=== PATIENT | male | born 1965 | race African-American/Black ===

== ENCOUNTER 2017-03-01 08:45 | Observation (INO) | payer OTHER ==
--- NOTE | ~2017-03-01 | DS ---
Unit #: [id number] #: [id number] Patient: KELLEY LOOMIS [id number] [address] [place], [place] [address] [id number] MR#: [id number] NAME: KELLEY LOOMIS ROOM: 556 Age: 51 Sex: M Admission Date: 03/01/2017 : 1965 Discharge Date: 03/02/2017 Attending Physician: Saida Mcfarland M.D. Primary Care Physician: Demetri Domínguez M.D. DISCHARGE SUMMARY SHORT STAY SUMMARY DIAGNOSIS ON ADMISSION Uncontrolled diabetes mellitus. DIAGNOSIS ON DISCHARGE 1. Uncontrolled diabetes mellitus. 2. Hypertension. HOSPITAL COURSE Byman-puz-gfkk-old patient, was admitted for uncontrolled diabetes mellitus. The patient was treated with IV fluids, and live insulin. The patient has responded well and his blood sugar this morning is 230. The patient feels good and is very anxious to go home, states that he wants to have Father's Day at home with his family. He denies having any chest pain, tightness, or heaviness, and no shortness of air, he feels comfortable and states that he has appointment with Dr. Demetri Domínguez next week and will followup with him. Therefore, we will probably discharge the patient home. His lab work today, revealed creatinine of 0.7, sodium 131, potassium was 3.2. WBC was 11.1, hemoglobin was 13.3, platelet count was 202, hemoglobin A1c was 10.2. RECOMMENDATIONS ON DISCHARGE The patient was advised to continue his home medications which as are per admission history and physical. He was advised to increase his Lantus to 25 units with breakfast. The patient was advised to follow up with primary care physician as scheduled next week on Friday and have a CBC and BMP done. The plan was discharged in detail with the patient who showed complete understanding. He was advised to have Accu-Cheks a.c. and q.h.s. and call primary care physician with results if greater than 250 or less than 80. The patient admits that he is noncompliant with his diet and medications, but states that lately he had been taking it regularly. Dictated by... Saida Mcfarland M.D. Unit #: [id number] #: [id number] Patient: VLADISLAVKELLEY New TD: 03/02/2017 15:39 JOB #: [id number] DISCHARGE SUMMARY Page 1 of 1 X Saida cMfarland MD DISCHARGE SUMMARY
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
--- NOTE | ~2017-03-01 | EKG ---
PATIENT: KELLEY LOOMIS UNIT #: [id number] Ventricular Rate: 104 BPM Atrial Rate: 104 BPM P-R Interval: 124 ms QRS Duration: 80 ms Q-T Interval: 354 ms QTC Calculation(Bezet): 465 ms P [place]: 68 degrees Calculated R [place]: 32 degrees Calculated T [place]: 48 degrees Diagnosis Line: Sinus tachycardia Diagnosis Line: Otherwise normal ECG Diagnosis Line: When compared with ECG of 29-JUL-2016 01:04, Diagnosis Line: T wave amplitude has increased in Anterior leads Diagnosis Line: Confirmed by SIVA GRIMALDO MD ([id number]) on Diagnosis Line: 03/02/2017 11:07:36 AM INTERPRETING MD: XENIA
--- NOTE | ~2017-03-01 | CR72 ---
[facility] A Service of [facility] RADIOLOGY TEXT RESULTS PATIENT: KELLEY LOOMIS LOCATION: [place] [address] : [birth year] UNIT #: [id number] AGE: [address]: Saida Mcfarland MD SEX: M ORDER DR: [id number] [facility] [address]. [place], [place] [address] [id number] MR#: [id number] Acc #: [id number] NAME: KELLEY LOOMIS : 1965 SEX: M STUDY DATE/TIME: 03/01/2017 9:09 UNIT: [facility] ROOM: STUDY DESCRIPTION: CR Chest Single View Portable Attending Physician: Ernst Arredondo M.D. Ordering Physician: Ernst Arredondo M.D. Primary Care Physician: Demetri Domínguez M.D. MEDICAL IMAGING REPORT This report is preliminary unless electronic signature is present EXAM Portable AP view of the chest COMPARISON 07/29/2016, 09/20/2005. TECHNIQUE 51-year-old male with dyspnea for 3 days. History of hypertension and diabetes. Prior stroke. FINDINGS Cardiomediastinal silhouette is within normal limits. No evidence of pneumothorax, pleural effusion or acute airspace disease. There is multilevel spondylosis of the thoracic spine. IMPRESSION No acute radiographic abnormality. Normal heart size. Dictated by... Oz White M.D. THIS IS AN ELECTRONICALLY VERIFIED REPORT Oz White M.D. at 03/09/2017 8:51 PM BLM/pcl TD: 03/01/2017 11:42 JOB #: [id number] MEDICAL IMAGING REPORT Page 1 of 1 COPY
[~2017-03-01 08:45] MED LIST: ALPRAZOLAM1 MG PO; AMITRIPTYLINE H50 MG PO; CYMBALTA PO; DEPAKOTE PO; EC-NAPROSYN500 MG PO; ENDOCET 5-3251 EACH PO; GABAPENTIN400 M2 PO; GLUCOTROL10 MG PO; RISPERDAL4 M1 PO; TRAZODONE HCL100 MG PO; ULTRAM PO; VIAGRA PO; VICODIN 5/1 TAB 5/50 PO; [UNRECOGNIZED DRUG - OTHER] SQ
[2017-03-01 09:41] LABS: POC - CKMB 1.4 ng/mL (0.0-7.9); POC - TROPONIN <0.05 ng/mL (<=0.05)
[2017-03-01 10:01] LABS: BASOPHIL% 0.1 % (0-2.5); EOSINOPHIL% 0.1 % (0.0-7.0); HEMATOCRIT 46.1 % (38.0-50.0); HEMOGLOBIN 15.7 gm/dL (13.0-16.0); LYMPHOCYTE# 2.1 X10e3 (1.0-3.5); LYMPHOCYTE% 13.7 % (17.0-45.0); MEAN CELL VOLUME 85.9 FL (83-96); MEAN CORPUSCULAR HEMOGLOBIN 29.3 PG (28-34); MEAN CORPUSCULAR HGB CONC 34.1 g/dL (30-36); MONOCYTE# 0.8 X10e3 (0-1.0); MONOCYTE% 5.3 % (3.0-12.0); NEUTROPHIL# 12.3 X10e3 (1.5-7.1); NEUTROPHIL% 80.8 % (40-75); PLATELET COUNT 265 X10e3 (140-420); RED BLOOD COUNT 5.36 X10e (3.90-5.60); RED CELL DISTRIBUTION WIDTH 12.4 % (11.0-15.5); WHITE BLOOD COUNT 15.2 X10e3 (4.0-10.5)
[2017-03-01 10:09] LABS: DIFF IND YES
[2017-03-01 10:59] LABS: PLATELET ESTIMATE NORMAL (NORMAL)
[2017-03-01 11:14] LABS: ALBUMIN SERUM 4.6 g/dL (3.5-5.0); BETA HYDROXYBUTYRATE 1.52 MMOL/L (0.02-0.27); BILIRUBIN, DIRECT 0.2 mg/dL (0.0-0.2); BILIRUBIN,TOTAL 1.2 mg/dL (0.2-2.0); BUN/CREATININE RATIO 23.33; CALCIUM SERUM 9.3 mg/dL (8.4-10.2); CREATININE SERUM 0.9 mg/dL (0.6-1.4); GLOM FILT RATE Estimated 113.4 mL/min (>60); POTASSIUM 3.6 mmol/L (3.5-5.1); PROTEIN TOTAL SERUM 8.1 g/dL (6.0-8.3)
[2017-03-01 11:36] LABS: URINE SOURCE CLEAN CATCH
[2017-03-01 11:43] LABS: URINE APPEARANCE CLEAR; URINE BILIRUBIN NEG (NEG); URINE BLOOD NEG (NEG); URINE COLOR YELLOW; URINE GLUCOSE >1000 MG/DL (NEG); URINE KETONE 3+ (NEG); URINE LEUKOCYTE ESTERASE NEG (NEG); URINE NITRATE NEG (NEG); URINE PH 6.5 (5-8); URINE PROTEIN NEG (NEG); URINE SPECIFIC GRAVITY 1.047 (1.003-1.035)
[2017-03-01 11:47] LABS: CULTURE INDICATED? NO
[2017-03-01 13:30] LABS: AMYLASE 18 U/L (0-46); LIPASE 22 U/L (22-51)
[2017-03-01] MEDS ORDERED: ALPRAZOLAM1 MG PO (15:21)
[2017-03-01] MEDS ORDERED: AMITRIPTYLINE H50 MG PO (15:22)
[2017-03-01] MEDS ORDERED: DIVALPROEX SOD500 M1 PO (15:23)
[2017-03-01] MEDS ORDERED: DULOXETINE HCL60 M1 PO (15:24)
[2017-03-01] MEDS ORDERED: GABAPENTIN400 M2 PO (15:25)
[2017-03-01] MEDS ORDERED: GLIPIZIDE10 MG PO (15:25)
[2017-03-01] MEDS ORDERED: LANTUS100 UNITS/ SUBQ (15:31)
[2017-03-01] MEDS ORDERED: RISPERDAL4 M1 PO (15:33)
[2017-03-01] MEDS ORDERED: TRAZODONE HCL100 MG PO (15:34)
[2017-03-02 05:22] LABS: HEMATOCRIT 39.9 % (38.0-50.0); MEAN CELL VOLUME 88.6 FL (83-96); MEAN CORPUSCULAR HEMOGLOBIN 29.5 PG (28-34); MEAN CORPUSCULAR HGB CONC 33.3 g/dL (30-36); MEAN PLATELET VOLUME 9.8 FL (6.5-11.5); RED BLOOD COUNT 4.5 X10e (3.90-5.60); RED CELL DISTRIBUTION WIDTH 11.9 % (11.0-15.5); WHITE BLOOD COUNT 11.1 X10e3 (4.0-10.5)
[2017-03-02 05:32] LABS: HEMOGLOBIN 13.3 gm/dL (13.0-16.0)
[2017-03-02 05:59] LABS: CALCIUM SERUM 8.2 mg/dL (8.4-10.2); CREATININE SERUM 0.7 mg/dL (0.6-1.4); GLOM FILT RATE Estimated 125.8 mL/min (>60); POTASSIUM 3.2 mmol/L (3.5-5.1)
== END 2017-03-02 14:28 | disposition home or self-care (01) ==
LOC: CED 08:45 → CEDOF 14:00 → CED 14:22 → CEDOF 18:32 → C5B 18:32
PROVIDERS: Emergency Medicine; Internal Medicine
DX: E11.65 Type 2 diabetes mellitus with hyperglycemia (principal); Z79.4 Long term (current) use of insulin; Z79.84 Long term (current) use of oral hypoglycemic drugs; R11.2 Nausea with vomiting, unspecified; R10.9 Unspecified abdominal pain; I25.10 Atherosclerotic heart disease of native coronary artery without angina pectoris; F17.290 Nicotine dependence, other tobacco product, uncomplicated
CPT/HCPCS: 36415; 71010; 80048; 80076; 81003; 82010; 82150; 82553; 82947; 83036; 83690; 84484; 85025; 85027; 93005; 96361; 96374; 96375; 96376; 99285; C9113; G0378; J1170; J1815; J2270; J2405